=== PATIENT | female | born 1945 ===

== ENCOUNTER 2025-06-22 12:40 | Outpatient (AMB) | payer MEDICARE, SELFPAY ==
--- OUTSIDE RECORDS SUMMARY | 2025-06-22 13:05 | XMS_ITS | Clinical Summary ---
Author Organization [facility] Address [address] [place] [address] Care Team Providers Care Traffic Law Attorney Name Role Phone Oseas Frey MD Primary Care Provider [phone] Allergies Active Allergy Reactions Criticality Noted Date Comments Lisinopril 12/30/2014 Other reaction(s): Cough Nsaids 01/23/2023 CELEBREX OKAVOIDS DUE TO STOMACH ULCER Sulfamethoxazole-Trimethop rim 08/15/2015 Other reaction(s): Myalgia, unspecified site Medications Medication Sig Dispensed Refills Start Date End Date Status atorvastatin (LIPITOR) 40 MG tablet Take 1 tablet (40 mg total) by mouth daily. 0 05/21/2015 Active Multiple Vitamins-Minerals (MULTIVITAL PO) Take by mouth daily. 0 Active Calcium Carbonate-Vitamin D (CALCIUM + D PO) Take 1 tablet by mouth daily. 0 Active CRANBERRY PO Take 1 capsule by mouth daily. 0 05/26/2015 Active Cholecalciferol (VITAMIN D3 PO) Take 1 tablet by mouth daily. 0 05/26/2015 Active acetaminophen (TYLENOL EXTRA STRENGTH) 500 MG tablet Take 2 tablets (1,000 mg total) by mouth every 8 (eight) hours as needed. 0 05/26/2015 Active famotidine (PEPCID) 20 MG tablet Take 1 tablet (20 mg total) by mouth daily. 0 11/14/2022 Active losartan (COZAAR) tablet 25 mg Take 1 tablet (25 mg total) by mouth daily. 0 08/13/2021 Active Melatonin 5 MG CAPS Take 1 tablet by mouth every night at bedtime as needed. 0 Active aspirin EC 81 MG EC tablet Take 1 tablet (81 mg total) by mouth 2 (two) times a day after meals. 84 tablet 0 02/25/2023 Active oxyCODONE (ROXICODONE) 5 MG immediate release tablet Take 1 tablet (5 mg total) by mouth every 4 (four) hours as needed for pain. 30 tablet 0 02/25/2023 Active senna-docusate (PERICOLACE) 8.6-50 MG Take 1 tablet by mouth 2 (two) times a day. 60 tablet 0 02/25/2023 Active methocarbamol (ROBAXIN) 750 MG tablet Take 1 tablet (750 mg total) by mouth every 6 (six) hours as needed (spasm). 30 tablet 0 03/18/2023 Active Active Problems Problem Noted Date Diagnosed Date Hx of total knee arthroplasty, left 07/08/2023 BMI 40.0-44.9, adult 01/28/2023 Genu varum of left lower extremity 01/22/2023 Morbid obesity 08/20/2018 Arthritis, lumbar spine 02/20/2016 Osteoarthritis of knees, bilateral 11/21/2015 Liposarcoma of right thigh 08/15/2015 Delayed effect of radiation 08/15/2015 Right thigh pain 08/15/2015 Immunizations Name Administration Dates Next Due Covid-19 (Pfizer) Dilution Required 07/25/2021,0 01/11/2021,12/20/2020 Covid-19 (Pfizer) Ready To Use 02/18/2022 Family History Medical History Relation Name Comments Esophageal cancer Brother Lymphoma Brother Other Brother Diabetes Father Heart disease Father Hypertension Father Kidney disease Father Arthritis Mother Cancer Mother Heart disease Mother Heart failure Mother Hypertension Mother Relation Name Status Comments Brother Father (Age 96.5) Mother (Age 97) Social History Tobacco Use Types Packs/Day Years Used Date Smoking Tobacco: Never Smokeless Tobacco: Never Tobacco Cessation:Counseling Given: Not Answered Alcohol Use Standard Drinks/Week Comments No 0 (1 standard drink = 0.6 oz pur e alcohol) Sex and Gender Information Value Date Recorded Sex Assigned at Female 07/25/2020 11:54 AM EDT Gender Identity Female 01/23/2023 1:40 PM EDT Sexual Orientation Not on file Job Start Date Occupation Industry Not on file Not on file Not on file Last Filed Vital Signs Vital Sign Reading Time Taken Comments Blood Pressure 148/66 01/08/2024 1:20 PM EDT Pulse 69 01/08/2024 1:20 PM EDT Temperature 36.6 C (97.9 F) 01/08/2024 1:20 PM EDT Respiratory Rate 16 02/26/2023 7:58 AM EDT Oxygen Saturation 98% 01/08/2024 1:20 PM EDT Inhaled Oxygen Concentration - - Weight 104.3 kg (230 lb) 01/08/2024 1:20 PM EDT Height 157.5 cm (5' 2 ) 01/08/2024 1:20 PM EDT Body Mass Index 42.07 01/08/2024 1:20 PM EDT Plan of Treatment Health Maintenance Due Date Last Done Comments Hepatitis C Screening 1945 Depression Screening 1959 BMI Counseling 1965 Preventative Health Evaluation 1965 DTap / Tdap / Td (2 - Tdap) 06/02/2010 06/02/2000 Fall Risk Assessment 2012 Osteoporosis Screening (DEXA Scan) 2012 RSV Adult > 60+ Yrs or (1 - 1-dose 75+ series) 2022 Pneumococcal Vaccine (3 of 3 - PPSV23 or PCV20) 01/30/2023 12/05/2022, 09/27/2015, 08/04/2009 COVID-19 Vaccine ( season) 2024 02/18/2022, 07/25/2021, 01/11/2021, Additional history exists Influenza Vaccine (#1) 2025 2, 08/14/2022, 07/25/2021, Additional history exists Shingrix-Zoster Vaccine Completed 02/09/2021, 09/25 Hepatitis B Vaccines Aged Out No long er eligible based on patient's age to complete this topic RSV Ped < 20 months Aged Out No longe r eligible based on patient's age to complete this topic Medical Devices Implanted Type Area Cover Marker Device Identifier Shelf Expiration Date Model / Serial / Lot Nail Ian 130d Short 360mm 11mm Jade Preassembled Locking - [id number] - [id number] Implanted:Qty: 1 on 10/06/2015 by Alejandro Borjas MD [place] [facility] [place] Right: Hip [employer] 06/03/2023 [id number] / / [id number] Blade Gold Sheyenne 85mm 11mm Jade Titanium Intramedullary Fix - [id number] - [id number] Implanted:Qty: 1 on 10/06/2015 by Alejandro Borjas MD at [facility] [place] [facility] Right: Hip [employer] 456.302 / / Screw Nail-Ex Fullthrd 44mm 5mm Selftap Locking Stardrive - [id number] - [id number] Implanted:Qty: 1 on 10/06/2015 by Alejandro Borjas MD at [facility] [place] [facility] [place] Right: Hip [employer] 04.005.53 4 / / Knee Bsplt Triathlon Ti Sz 2 Stry-Howm [id number] - [id number] Implanted:Qty: 1 on 02/24/2023 by Alejandro Borjas MD at [facility] [place] [facility] Left: Knee [employer] [id number] 11/08/2027 5536-B-20 0 / / [id number] Knee Insrt Tib Trthln Ps 2 Stry-Howm [id number] - [id number] Implanted:Qty: 1 on 02/24/2023 by Alejandro Borjas MD at [facility] [place] [facility] Left: Knee [employer] [id number] 06/22/2027 5532-P-21 1 / / [id number] Description:Size #2, PS, THK NS: 11mm Knee Cmpnt Fem Ps N Kel Lt Sz2 Stry-Howm [id number] - [id number] Implanted:Qty: 1 on 02/24/2023 by Alejandro Borjas MD at [facility] [place] [facility] Left: Knee [employer] [id number] 06/04/2027 5516-F-20 1 / / [id number] Description:Size #2, LEFT, P S Knee Ptla Smtr Tritanium 31x9 Stry-Howm [id number] - [id number] Implanted:Qty: 1 on 02/24/2023 by Alejandro Borjas MD at [facility] [place] [facility] [place] Left: Knee [employer] [id number] 01/16/2028 5556-L-31 9 / / [id number] Advance Directives For more information, please contact: [phone] Latest Code Status on File Code Status Date Activated Date Inactivated Comments Full Code 02/24/2023 12:21 PM 02/26/2023 8:32 PM This c ode status was ascertained in the following way: discussion with patient . Code Status History Code Status Date Activated Date Inactivated Comments Full Code 02/24/2023 7:03 AM 02/24/2023 12:21 PM This c ode status was ascertained in the following way: discussion with patient . Full Code 10/06/2015 7:24 PM 10/09/2015 10:31 PM Th is code status was ascertained in the following way: discussion with patient. Care Teams Traffic Law Attorney Relationship Specialty Start Date End Date Oseas Frey MD [address] [place] [phone] PCP - General Internal Medicine 02/18/23 DR. MONK Pain Medicine 12/21/15
--- OUTSIDE RECORDS SUMMARY | 2025-06-22 13:05 | XMS_ITS | Patient Health Record ---
Author Organization [facility] Address [address] [place] [address] Support Name Relationship Address Phone Nuria Arauz Guarantor Unknown [phone] Reason For Referral No Information Plan Of Treatment No Information Insurance Providers Payer Name Payer Address Payer Phone Subscriber Number Group Number Insured Name Patient Relationship to Insured Coverage Start Date Coverage End Date Medicare of [place] - [facility] [address] [place] [address] [id number] Nuria Bah Self - patient is the insured
--- OUTSIDE RECORDS SUMMARY | 2025-06-22 13:06 | XMS_ITS ---
Author Name [facility] Organization Unknown History of Medication Use Medication Directions Dispensed Refills Start Date End Date Stat methocarbamoL (ROBAXIN) 750 mg tablet Take 1 tablet (750 mg total) by mouth every 6 hours as needed. 03/18/2023 active aspirin 81 mg EC tablet Take 1 tablet (8 1 mg total) by mouth 2 (two) times a day after meals. 02/25/2023 active aspirin EC 81 MG EC tablet Take 1 tablet (81 mg total) by mouth 2 (two) times a day after meals. 02/25/2023 active oxyCODONE (ROXICODONE) 5 mg immediate release tablet Take 1 tablet (5 mg total) by mouth every 30 minutes as needed. Max Daily Amount: 30 mg 02/25/2023 active senna-docusate (PERICOLACE) 8.6-50 MG Take 1 tablet by mouth 2 (two) times a day. 02/25/2023 active senna-docusate (PERICOLACE) 8.6-50 mg per tablet Take 1 tablet by mouth 2 (two) times a day. 02/25/2023 active famotidine (PEPCID) 20 mg tablet Take 1 tablet (20 mg total) by mouth 1 (one) time each day. 11/14/2022 active famotidine (PEPCID) 20 MG tablet Take 1 tablet (20 mg total) by mouth daily. 11/14/2022 active losartan (COZAAR) 25 mg tablet Take 1 tablet (25 mg total) by mouth 1 (one) time each day. 08/13/2021 active losartan (COZAAR) tablet 25 mg Take 1 tablet (25 mg total) by mouth daily. 08/13/2021 active acetaminophen (TYLENOL EXTRA STRENGTH) 500 MG tablet Take 2 tablets (1,000 mg total) by mouth every 8 (eight) hours as needed. 05/26/2015 active acetaminophen (TYLENOL) 500 mg tablet Take 2 tablets (1,000 mg total) by mouth every 8 hours as needed. 05/26/2015 active Cholecalciferol (VITAMIN D3 PO) Take 1 tablet by mouth daily. 05/26/2015 active Cholecalciferol (VITAMIN D3 PO) Take 1 tablet by mouth daily. 05/26/2015 active CRANBERRY ORAL Take 1 capsule by mouth daily. 05/26/2015 active CRANBERRY PO Take 1 capsule by mouth daily. 05/26/2015 active atorvastatin (LIPITOR) 40 mg tablet Take 1 tablet (40 mg total) by mouth 1 (one) time each day. 05/21/2015 active Melatonin 5 MG CAPS Take 1 tablet by mouth every night at bedtime as needed. active melatonin 5 mg capsule Take 1 tablet by mouth at bedtime as needed. active Multiple Vitamins-Minerals (MULTIVITAL PO) Take by mouth daily. active Allergies Allergen Reaction Severity Comment Documented Date Source Statu s NSAIDS CELEBREX OKAVOI DS DUE TO STOMACH ULCER 01/23/2023 [facility] active NSAIDS (NON-STEROIDAL ANTI-INFLAMMATOR Y DRUG) CELEBREX OKAVOIDS DUE TO STOMACH ULCER 01/23/2023 [facility] active SULFAMETHOXAZOLE -TRIMETHOPRIM Other reaction(s): Myalgia, unspecified site 08/15/2015 [facility] active LISINOPRIL Other reaction(s): Cough 12/30/2014 [facility] active Problems Problem Status Onset Date Problem Type Date of Resolution Source Hx of total knee arthroplasty, left active 2023-07-08 ProblemAct [facility] Hx of total knee arthroplasty, left active EncounterDiagnosisAct [facility] Osteoarthritis of knees, bilateral active 2015-11-21 ProblemAct [facility] Genu varum of left lower extremity active 2023-01-22 ProblemAct [facility] BMI 40.0-44.9, adult active 2023-01-28 ProblemAct [facility] Right thigh pain active 2015-08-15 ProblemAct [facility] Morbid obesity active 2018-08-20 ProblemAct [facility] Arthritis, lumbar spine active 2016-02-20 ProblemAct [facility] Liposarcoma of right thigh active 2015-08-15 ProblemAct [facility] Delayed effect of radiation active 2015-08-15 ProblemAct [facility] Immunizations Vaccine Date Source Lot Number Status Covid-19 (Pfizer) Ready To Use 02/18/2022 SHARIF [id number] completed Covid-19 (Pfizer) Dilution Required 07/25/2021 SHARIF [id number] completed Covid-19 (Pfizer) Dilution Required 01/11/2021 CTTJUAN R [id number] completed Covid-19 (Pfizer) Dilution Required 12/20/2020 AMBROSEGORDO [id number] completed Encounters Encounter Type Encounter Reason Primary Diagnosis Location Date Ambulatory History of left tota l knee replacement 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, including hip ([facility] V24, [facility] V28) [facility] 01/27/2025 Ambulatory Malignant neoplasm o f connective and soft tissue of right lower limb, including hip (CMS/HCC V24, CMS/HCC V28) 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, including hip (CMS/HCC V24, CMS/[facility] V28) [facility] 01/27/2025 Ambulatory Presence of left artificial knee joint Presence of left artificial knee joint [facility] 01/27/2025 Ambulatory Body mass index (BMI ) 40.0-44.9, adult Body mass index (BMI) 40.0-44.9, adult [facility] 01/08/2024 Ambulatory Bilateral primary osteoarthritis of knee Bilateral primary osteoarthritis of knee [facility] 07/08/2023 Care Team Organization Name Specialty Phone Email Start Date End Da te [facility] Oseas Dumont MD Primary Care 01/28/2025 [facility] Oseas Dumont MD Primary Care 01/27/2025 [facility] HERNANDEZ PEDROZA Primary Care 01/06/2024 [facility] 07/08/2023 07/08/2023 [facility] 04/14/2023 05/10/2025 [facility] OSEAS DUMONT Primary Care 04/08/2023 04/08/2023
== END 2025-06-22 12:50 | disposition home or self-care (01) ==
LOC: HO.HMGAL 12:40
PROVIDERS: PCP Internal Medicine; Visit Provider Registered Nurse Emergency
DX: J30.89 Other allergic rhinitis (principal)
CPT/HCPCS: 95117; 95165

== ENCOUNTER 2025-07-13 14:10 | Outpatient (AMB) | payer MEDICARE, SELFPAY ==
--- OUTSIDE RECORDS SUMMARY | 2025-07-13 17:54 | XMS_ITS | Clinical Summary ---
Author Organization [facility] Address [address] [place] [phone] Phone Care Team Providers Care Dressmaker Garment Fitter Name Role Phone Oseas Frey MD Primary Care Provider [phone] Allergies Active Allergy Reactions Criticality Noted Date Comments Lisinopril 12/30/2014 Other reaction(s): Cough Nsaids (Non-Steroidal Anti-Inflammatory Drug) 01/23/2023 CELEBREX OKAVOIDS DUE TO STOMACH ULCER Sulfamethoxazole-Trimethop rim 08/15/2015 Other reaction(s): Myalgia, unspecified site Medications acetaminophen (TYLENOL) 500 mg tablet Take 2 tablets (1,000 mg total) by mouth every 8 hours as needed. 05/26/2015 Active aspirin 81 mg EC tablet Take 1 tablet (81 mg total) by mouth 2 (two) times a day after meals. 02/25/2023 Active atorvastatin (LIPITOR) 40 mg tablet Take 1 tablet (40 mg total) by mouth 1 (one) time each day. 05/21/2015 Active CALCIUM CARBONATE ORAL Take 1 tablet by mouth daily. Active CHOLECALCIFEROL , VITAMIN D3, ORAL Take 1 tablet by mouth daily. 05/26/2015 Active CRANBERRY ORAL Take 1 capsule by mouth daily. 05/26/2015 Active famotidine (PEPCID) 20 mg tablet Take 1 tablet (20 mg total) by mouth 1 (one) time each day. 11/14/2022 Active losartan (COZAAR) 25 mg tablet Take 1 tablet (25 mg total) by mouth 1 (one) time each day. 08/13/2021 Active melatonin 5 mg capsule Take 1 tablet by mouth at bedtime as needed. Active methocarbamoL (ROBAXIN) 750 mg tablet Take 1 tablet (750 mg total) by mouth every 6 hours as needed. 03/18/2023 Active multivitamin (MULTIPLE VITAMINS ORAL) Take by mouth daily. Active oxyCODONE (ROXICODONE) 5 mg immediate release tablet Take 1 tablet (5 mg total) by mouth every 30 minutes as needed. Max Daily Amount: 30 mg 02/25/2023 Active senna-docusate (PERICOLACE) 8.6-50 mg per tablet Take 1 tablet by mouth 2 (two) times a day. 02/25/2023 Active Active Problems Problem Noted Date Diagnosed Date Genu varum of left lower extremity 01/22/2023 Morbid obesity ([facility] V24, [facility] V28) 2017 Arthritis, lumbar spine 02/20/2016 Osteoarthritis of knees, bilateral 11/21/2015 Delayed effect of radiation 08/15/2015 Liposarcoma of right thigh ([facility] V24, [facility] V28) 08/15/2015 Right thigh pain 08/15/2015 Surgical History Surgery Date Site/Laterality Comments HYSTERECTOMY 1992 PROCEDURE:HYSTERECTOMY;COMMEN T:total, tristian s/o OTHER SURGICAL HISTORY Right PROCEDURE:excision liposarcoma;COMMENT:x2 COSMETIC SURGERY PROCEDURE:COSMETIC SURGERY;COMMENT:revision scar rt thigh COLONOSCOPY PROCEDURE:COLONOSCOPY UPPER GASTROINTESTINAL ENDOSCOPY PROCEDURE:UPPER GASTROINTESTINAL ENDOSCOPY BONE BIOPSY 10/06/2015 Right PROCEDURE:BONE BIOPSY;COMMENT:Procedure: OPEN BIOPSY RIGHT FEMUR; Surgeon: Alejandro Borjas MD; Location: [facility]; Service: Orthopedics; Laterality: Right; ORIF FEMUR FRACTURE 10/06/2015 Right PROCEDURE:ORIF FEMUR FRACTURE;COMMENT:Procedure: PROPHYLACTIC IM NAIL RIGHT FEMUR; Surgeon: Alejandro Borjas MD; Location: [facility]; Service: Orthopedics; Laterality: Right; HAND SURGERY 2020 Right PROCEDURE:HAND SURGERY;COMMENT:trigger finger TOTAL KNEE ARTHROPLASTY 02/24/2023 Left PROCEDURE:TOTAL KNEE ARTHROPLASTY;COMMENT:Procedur e: REPLACEMENT TOTAL KNEE; Surgeon: Alejandro Borjas MD; Location: [facility]); Service: Orthopedics; Laterality: Left; Medical History Medical History Date Comments Hypertension DX:Hypertension Chronic kidney disease DX:Chroni c kidney disease;COMMENT:stones GERD (gastroesophageal reflux disease) DX:GERD (gastroesophageal reflux disease) Arthritis DX:Arthritis Cancer ([facility] V24, [facility] V28) DX:Cancer (HCC);COMMENT:liposarcoma Hyperlipidemia DX:Hyperlipidemi a Kidney stone DX:Kidney stone; COMMENT:past hx Radiation DX:Radiation Ulcer, stomach peptic DX:Ulcer, stomach peptic PND (post-nasal drip) DX:PND (po st-nasal drip) Hx of radiation therapy DX:Hx of radiation therapy Osteoarthritis DX:Osteoarthriti s Family History Medical History Relation Name Comments Esophageal cancer Brother Lymphoma Brother Other: Brother Diabetes Father Heart disease Father Hypertension Father Kidney disease Father Arthritis Mother Cancer Mother Heart disease Mother Heart failure Mother Hypertension Mother Relation Name Status Comments Brother Father (Age 96.5) Mother (Age 97) Social History Tobacco Use Types Packs/Day Years Used Date Smoking Tobacco: Never Smokeless Tobacco: Never Alcohol Use Standard Drinks/Week Comments No 0 (1 standard drink = 0.6 oz pur e alcohol) Comments Unknown Sex and Gender Information Value Date Recorded Sex Assigned at Not on file Legal Sex Female 11:30 AM EST Gender Identity Not on file Sexual Orientation Not on file Obstetrics History Last Filed Vital Signs Vital Sign Reading Time Taken Comments Blood Pressure 122/66 01/27/2025 1:04 PM EDT Pulse 73 01/27/2025 1:04 PM EDT Temperature - - Respiratory Rate - - Oxygen Saturation - - Inhaled Oxygen Concentration - - Weight 101 kg (222 lb) 01/27/2025 1:04 PM EDT Height 157.5 cm (5' 2 ) 01/27/2025 1:04 PM EDT Body Mass Index 40.6 01/27/2025 1:04 PM EDT Plan of Treatment Upcoming Encounters Date Type Department Care Team (Late st Contact Info) Description 01/19/2026 1:30 PM EDT Office Visit [facility]opedic Oncology - [place] [address] [place] [id number] Alejandro Borjas MD [address] [place], [place] [phone] (work) Health Maintenance Due Date Last Done Comments Diabetes: Annual Foot Exam 1955 Diabetes: Annual Retina Eye Exam 1955 Cholesterol Screening (Lipid Panel) 09/24/2022 Falls Risk Assessment 09/24/2022 Hepatitis C Screening 09/24/2022 Medicare Annual Wellness Visit 09/24/2022 Osteoporosis Screening (Bone Density Screening) 09/24/2022 Social Influencers of Health Screening 09/24/2022 Diabetes: Annual GFR (Glomerular Filtration Rate) 01/29/2024 01/28/2023, 01/28/2023 Depression Screening 10/27/2024 Diabetes: Annual Urine Albumin-Creatinine Ratio (uACR) 01/27/2025 Diabetes: Blood Sugar Control Test (HGBA1C) 01/27/2025 01/28/2023, 01/28/2023 Hypertension/CHF/CAD Annual BMP Blood Test 01/27/2025 01/28/2023, 01/28/2023 COVID-19 Vaccine (7 - Pfizer risk season) 2025 07/29/2024, 08/13/2023, 02/18/2022, Additional history exists Influenza Vaccine (#1) 2025 , 08/13/2023, 09/06/2022, Additional history exists Pneumococcal Vaccine: 50+ Years (3 of 3 - PCV20 or PCV21) 12/05/2027 12/05/2022, 09/27/2015, 08/04/2009 DTaP,Tdap,and Td Vaccines (3 - Td or Tdap) 12/11/2033 12/11/2023, 06/02/2000 Zoster Vaccines Completed 02/09/2021, 09/25/2020 RSV Immunization Adult Patients Completed 08/13/2023 HIB Vaccines Aged Out No longer eligi ble based on patient's age to complete this topic HPV Vaccines Aged Out No longer eligi ble based on patient's age to complete this topic Hepatitis A Vaccines Aged Out No long er eligible based on patient's age to complete this topic Hepatitis B Vaccines Aged Out No long er eligible based on patient's age to complete this topic IPV Vaccines Aged Out No longer eligi ble based on patient's age to complete this topic MMR Vaccines Aged Out No longer eligi ble based on patient's age to complete this topic Meningococcal ACWY Vaccine Aged Out N o longer eligible based on patient's age to complete this topic Meningococcal B Vaccine Aged Out No l onger eligible based on patient's age to complete this topic RSV Immunization Patients Under 20 months Aged Out No longer eligible based on patient's age to complete this topic Varicella Vaccines Aged Out No longer eligible based on patient's age to complete this topic Medical Devices Implanted Type Area Vp Rheumatology Device Identifier Shelf Expiration Date Model / Serial / Lot Knee Bsplt Triathlon Ti Sz 2 Stry-Howm [id number] Implanted:Qty: 1 on 02/24/2023 by Alejandro Borjas MD Left: Knee [employer] [id number] 11/08/2027 5536-B-200 / / [id number] Knee Insrt Tib Trthln Ps 2 Stry-Howm [id number] Implanted:Qty: 1 on 02/24/2023 by Alejandro Borjas MD Left: Knee [employer] [id number] 06/22/2027 5532-P-211 / / [id number] Description:Size #2, PS, THK NS: 11mm Knee Cmpnt Fem Ps N Kel Lt Sz2 Stry-Howm [id number] Implanted:Qty: 1 on 02/24/2023 by Alejandro Borjas MD Left: Knee [employer] [id number] 06/04/2027 5516-F-201 / / [id number] Description:Size #2, LEFT, P S Knee Ptla Smtr Tritanium 31x9 Stry-Howm [id number] Implanted:Qty: 1 on 02/24/2023 by Alejandro Borjas MD Left: Knee [employer] [id number] 01/16/2028 5556-L-319 / / [id number] Procedures Procedure Name Priority Date/Time Associated Diagnosis Comments HM ANNUAL BMP BLOOD TEST Routine 01/28/2023 HEMOGLOBIN A1C Routine 01/28/2023 from Last 3 Months or Most Recently Relevant to Health Maintenance Results * Annual BMP Blood Test (01/28/2023) Annual BMP Blood Test abstracted Historical Provider HEALTH MAINTENANCE Final Result * (ABNORMAL) Hemoglobin A1c (01/28/2023) Hemoglobin A1C 6.5(A) <=5.7 % Blood Venous blood specimen / Unknown Historical Provider LAB BLOOD ORDERABLES Margie l Result from Last 3 Months or Most Recently Relevant to Health Maintenance Insurance [employer] [employer] Advance Directives Documents on File Type Date Recorded Patient Retail Custodial Associate Expl anation Health Care Decision (hx) 02/24/2023 SARAH HERNANDEZ Care Teams Dressmaker Garment Fitter Relationship Specialty Start Date End Date Oseas Frey MD [address] [place] [phone] PCP - General 02/18/23
--- OUTSIDE RECORDS SUMMARY | 2025-07-13 17:54 | XMS_ITS | Clinical Summary ---
Author Organization [facility] Address [address] [place] [address] Care Team Providers Care Face Man Name Role Phone Oseas Frey MD Primary Care Provider [phone]- [phone] Allergies Active Allergy Reactions Criticality Noted Date [...] 12/05/2022, 09/27/2015, 08/04/2009 COVID-19 Vaccine ( season) 2025 02/18/2022, 07/25/2021, 01/11/2021, Additional history exists Influenza Vaccine (#1) 2025 2, 08/14/2022, 07/25/2021, Additional history exists Shingrix-Zoster Vaccine Completed 02/09/2021, 09/25 Hepatitis B Vaccines Aged Out No long er eligible based on patient's age to complete this topic RSV Ped < 20 months Aged Out No longe r eligible based on patient's age to complete this topic Medical Devices Implanted Type Area Batch Attendant Device Identifier Shelf Expiration Date Model / Serial / Lot Nail Ian 130d Short 360mm 11mm Jade Preassembled Locking - [id number] - [id number] Implanted:Qty: 1 on 10/06/2015 by Alejandro Borjas MD at [facility] Right: Hip [employer] 06/03/2023 456.416S / / [id number] Blade Gold [place] 85mm 11mm Jade Titanium Intramedullary Fix - [id number] - [id number] Implanted:Qty: 1 on 10/06/2015 by Alejandro Borjas MD at [facility] Right: Hip [employer] 456.302 / / Screw Nail-Ex Fullthrd 44mm 5mm Selftap Locking Stardrive - [id number] - [id number] Implanted:Qty: 1 on 10/06/2015 by Alejandro Borjas MD at [facility] Right: Hip [employer] 04.005.53 4 / / Knee Bsplt Triathlon Ti Sz 2 Stry-Howm 2109-E-935-679285 - [id number] Implanted:Qty: 1 on 02/24/2023 by Alejandro Borjas MD at [facility] Left: Knee [facility] [id number] 11/08/2027 5536-B-20 0 / / [id number] Knee Insrt Tib Trthln Ps 2 Stry-Howm 5637-F-203-401473 - [id number] Implanted:Qty: 1 on 02/24/2023 by Alejandro Borjas MD at [facility] Left: Knee [employer] [id number] 06/22/2027 5532-P-21 1 / / [id number] Description:Size #2, PS, THK NS: 11mm Knee Cmpnt Fem Ps N Kel Lt Sz2 Stry-Howm 8018-W-718-121989 - [id number] Implanted:Qty: 1 on 02/24/2023 by Alejandro Borjas MD at [facility] Left: Knee [employer] [id number] 06/04/2027 5516-F-20 1 / / [id number] Description:Size #2, LEFT, P S Knee Ptla Smtr Tritanium 31x9 Stry-Howm 2154-I-212-161960 - [id number] Implanted:Qty: 1 on 02/24/2023 by Alejandro Borjas MD at [facility] Left: Knee [facility] [facility] [id number] 01/16/2028 5556-L-31 9 / / [id number] Advance Directives For more information, please contact: [phone] Latest Code Status on File Code Status [...] following way: discussion with patient. Care Teams Face Man Relationship Specialty Start Date End Date Oseas Frey MD [address] [place] [address] PCP - General Internal Medicine 02/18/23 DR. MONK Pain Medicine 12/21/15
--- OUTSIDE RECORDS SUMMARY | 2025-07-13 17:54 | XMS_ITS | Patient Health Record ---
Author Organization [facility] Address [address] [place] [address] Support Name Relationship Address Phone Nuria Arauz Guarantor Unknown [phone] Reason For Referral No Information Plan Of Treatment No Information Insurance Providers Payer Name Payer Address Payer Phone Subscriber Number Group Number Insured Name Patient Relationship to Insured Coverage Start Date Coverage End Date Medicare of [place] - [facility] [address] [place] [address] [id number] Nuria Bah Self - patient is the insured
== END 2025-07-13 14:13 | disposition home or self-care (01) ==
LOC: HO.HMGAL 14:10
PROVIDERS: PCP Internal Medicine; Visit Provider Registered Nurse Emergency
DX: J30.89 Other allergic rhinitis (principal)
CPT/HCPCS: 95117; 95165

== ENCOUNTER 2025-08-10 15:30 | Outpatient (AMB) | payer MEDICARE, SELFPAY ==
--- OUTSIDE RECORDS SUMMARY | 2025-08-10 18:59 | XMS_ITS | Clinical Summary ---
Author Organization [facility] Building Address [address] [place] [address] Phone Care Team Providers Care Coat Joiner Lockstitch Name Role Phone Oseas Frey MD Primary Care Provider [phone]- [phone] Allergies Active Allergy Reactions Criticality Noted Date [...] of left lower extremity 01/22/2023 Morbid obesity ([facility] V24, [facility] V28) 2017 Arthritis, lumbar spine 02/20/2016 Osteoarthritis of knees, bilateral 11/21/2015 Delayed effect of radiation 08/15/2015 Liposarcoma of right thigh ([facility] V24, [facility] V28) 08/15/2015 Right thigh pain 08/15/2015 Surgical History Surgery Date Site/Laterality Comments HYSTERECTOMY 1992 PROCEDURE:HYSTERECTOMY;COMMEN T:total, tristian s/o OTHER SURGICAL HISTORY Right PROCEDURE:excision liposarcoma;COMMENT:x2 COSMETIC SURGERY PROCEDURE:COSMETIC SURGERY;COMMENT:revision scar rt thigh COLONOSCOPY PROCEDURE:COLONOSCOPY UPPER GASTROINTESTINAL ENDOSCOPY PROCEDURE:UPPER GASTROINTESTINAL ENDOSCOPY BONE BIOPSY 10/06/2015 Right PROCEDURE:BONE BIOPSY;COMMENT:Procedure: OPEN BIOPSY RIGHT FEMUR; Surgeon: Aeljandro Borjas MD; Location: [facility] MAIN OPERATING ROOM; Service: Orthopedics; Laterality: Right; ORIF FEMUR FRACTURE 10/06/2015 Right PROCEDURE:ORIF FEMUR FRACTURE;COMMENT:Procedure: PROPHYLACTIC IM NAIL RIGHT FEMUR; Surgeon: Alejandro Borjas MD; Location: [facility] MAIN OPERATING ROOM; Service: Orthopedics; Laterality: Right; HAND SURGERY 2020 Right PROCEDURE:HAND SURGERY;COMMENT:trigger finger TOTAL KNEE ARTHROPLASTY 02/24/2023 Left PROCEDURE:TOTAL KNEE ARTHROPLASTY;COMMENT:Procedur e: REPLACEMENT TOTAL KNEE; Surgeon: Alejandro Borjas MD; Location: [facility] Service: Orthopedics; Laterality: Left; Medical History Medical History Date Comments Hypertension DX:Hypertension Chronic kidney disease DX:Chroni c kidney disease;COMMENT:stones GERD (gastroesophageal reflux disease) DX:GERD (gastroesophageal reflux disease) Arthritis DX:Arthritis Cancer ([facility] V24, [facility] V28) DX:Cancer (HCC);COMMENT:liposarcoma Hyperlipidemia DX:Hyperlipidemi a Kidney [...] PM EDT Office Visit Orthopedic Oncology - [place] [address] [place] [phone] Alejandro Borjas MD [address] [place], [place] [id number] (work) Health Maintenance Due Date Last Done [...] this topic Medical Devices Implanted Type Area Blintze Roller Device Identifier Shelf Expiration Date Model / Serial / Lot Knee Bsplt Triathlon Ti Sz 2 Stry-Howm 8832-P-[id number] [id number] Implanted:Qty: 1 on 02/24/2023 by Alejandro Borjas MD Left: Knee [employer] [id number] 11/08/2027 5536-B-200 / / [id number] Knee Insrt Tib Trthln Ps 2 Stry-Howm 5555-Z-363-550 545 Implanted:Qty: 1 on 02/24/2023 by Alejandro Borjas MD Left: Knee [employer] [id number] 06/22/2027 5532-P-211 / / [id number] Description:Size #2, PS, THK NS: 11mm Knee Cmpnt Fem Ps N Kel Lt Sz2 Stry-Howm 3830-Z-548-549 373 Implanted:Qty: 1 on 02/24/2023 by Alejandro Borjas MD Left: Knee [employer] [id number] 06/04/2027 5516-F-201 / / [id number] Description:Size #2, LEFT, P S Knee Ptla Smtr Tritanium 31x9 Stry-Howm 3798-K-645-606 060 Implanted:Qty: 1 on 02/24/2023 by Alejandro Borjas MD Left: Knee [employer] [id number] 01/16/2028 5556-L-319 / / [id number] Procedures Procedure [...] Documents on File Type Date Recorded Patient Crude Unit Operator Expl anation Health Care Decision (hx) 02/24/2023 SARAH HERNANDEZ Care Teams Coat Joiner Lockstitch Relationship Specialty Start Date End Date Oseas Frey MD [address] [place] [address] PCP - General 02/18/23
--- OUTSIDE RECORDS SUMMARY | 2025-08-10 18:59 | XMS_ITS | Patient Health Record ---
Author Organization [facility] Address [address] [place] [address] Support Name Relationship Address Phone Nuria Arauz Guarantor Unknown Reason For Referral No Information Plan Of Treatment No Information Insurance Providers Payer Name Payer Address Payer Phone Subscriber Number Group Number Insured Name Patient Relationship to Insured Coverage Start Date Coverage End Date Medicare of [place] [facility] [address] [place] [address] [id number] Nuria Bah Self - patient is the insured
--- OUTSIDE RECORDS SUMMARY | 2025-08-10 18:59 | XMS_ITS | Clinical Summary ---
Author Organization [facility] Address [address] [place] [address] Care Team Providers Care Pipe Welder Name Role Phone Oseas Frey MD Primary Care Provider [phone]- [phone] Allergies Active Allergy Reactions Criticality Noted Date [...] this topic Medical Devices Implanted Type Area Business Process Engineer Device Identifier Shelf Expiration Date Model / Serial / Lot Nail Ian 130d Short 360mm 11mm Jade Preassembled Locking - 396121 - [id number] Implanted:Qty: 1 on 10/06/2015 by Alejandro Borjas MD at [facility] Right: Hip [employer] 06/03/2023 456.416S / / [id number] Blade Gold [place] 85mm 11mm Jade Titanium Intramedullary Fix - 389567 - [id number] Implanted:Qty: 1 on 10/06/2015 by Alejandro Borjas MD at [facility] Right: Hip [employer] 456.302 / / Screw Nail-Ex Fullthrd 44mm 5mm Selftap Locking Stardrive - 805456 - [id number] Implanted:Qty: 1 on 10/06/2015 by Alejandro Borjas MD at [facility] Right: Hip [employer] 04.005.53 4 / / Knee Bsplt Triathlon Ti Sz 2 Stry-Howm 6036-R-401-262763 - [id number] Implanted:Qty: 1 on 02/24/2023 by Alejandro Borjas MD at [facility] Left: Knee [facility] [id number] 11/08/2027 5536-B-20 0 / / [id number] Knee Insrt Tib Trthln Ps 2 Stry-Howm 6697-R-547-607905 - [id number] Implanted:Qty: 1 on 02/24/2023 by Alejandro Borjas MD at [facility] Left: Knee [facility] [facility] [id number] 06/22/2027 5532-P-21 1 / / [id number] Description:Size #2, PS, THK NS: 11mm Knee Cmpnt Fem Ps N Kel Lt Sz2 Stry-Howm 9454-K-564-469686 - [id number] Implanted:Qty: 1 on 02/24/2023 by Alejandro Borjas MD at [facility] Left: Knee [facility] [id number] 06/04/2027 5516-F-20 1 / / [id number] Description:Size #2, LEFT, P S Knee Ptla Smtr Tritanium 31x9 Stry-Howm 9332-N-934-132704 - [id number] Implanted:Qty: 1 on 02/24/2023 by Alejandro Borjas MD at [facility] Left: Knee [facility] [facility] [id number] 01/16/2028 5556-L-31 9 / / [id number] Advance Directives For more information, please contact: [phone] Latest Code Status on File Code Status [...] following way: discussion with patient. Care Teams Pipe Welder Relationship Specialty Start Date End Date Oseas Frey MD [address] [place] [address] PCP - General Internal Medicine 02/18/23 DR. MONK Pain Medicine 12/21/15
== END 2025-08-10 15:31 | disposition home or self-care (01) ==
LOC: HO.HMGAL 15:30
PROVIDERS: PCP Internal Medicine; Visit Provider Registered Nurse Emergency
DX: J30.89 Other allergic rhinitis (principal)
CPT/HCPCS: 95117; 95165

== ENCOUNTER 2025-08-31 15:21 | Outpatient (AMB) | payer MEDICARE, SELFPAY ==
--- OUTSIDE RECORDS SUMMARY | 2025-08-31 18:18 | XMS_ITS | Patient Health Record ---
Author Organization [facility] Address [address] [place] [address] Support Name Relationship Address Phone Nuria Arauz Guarantor Unknown [phone] Reason For Referral No Information Plan Of Treatment No Information Insurance Providers Payer Name Payer Address Payer Phone Subscriber Number Group Number Insured Name Patient Relationship to Insured Coverage Start Date Coverage End Date [facility] [place] [facility] [address] [place] [address] [id number] Nuria Bah Self - patient is the insured
--- OUTSIDE RECORDS SUMMARY | 2025-08-31 18:18 | XMS_ITS | Clinical Summary ---
Author Organization [facility] Address [address] [place] [address] Care Team Providers Care Bilingual Customer Service Specialist Name Role Phone Oseas Frey MD Primary Care Provider [phone]- [phone] Allergies Active Allergy Reactions Criticality Noted Date [...] this topic Medical Devices Implanted Type Area Continuous Yarn Dyeing Machine Operator Device Identifier Shelf Expiration Date Model / Serial / Lot Nail Ian 130d Short 360mm 11mm Jade Preassembled Locking - [id number] - [id number] Implanted:Qty: 1 on 10/06/2015 by Alejandro Borjas MD at [facility] Right: Hip [employer] 06/03/2023 456.416S / / [id number] Blade Gold [place] 85mm 11mm Jade Titanium Intramedullary Fix - 549157 - [id number] Implanted:Qty: 1 on 10/06/2015 by Alejandro Borjas MD at [facility] Right: Hip [employer] 456.302 / / Screw Nail-Ex Fullthrd 44mm 5mm Selftap Locking Stardrive - 492150 - [id number] Implanted:Qty: 1 on 10/06/2015 by Alejandro Borjas MD at [facility] Right: Hip [employer] 04.005.53 4 / / Knee Bsplt Triathlon Ti Sz 2 Stry-Howm 4033-Q-052-107719 - [id number] Implanted:Qty: 1 on 02/24/2023 by Alejandro Borjas MD at [facility] Left: Knee [facility] [id number] 11/08/2027 5536-B-20 0 / / [id number] Knee Insrt Tib Trthln Ps 2 Stry-Howm 5528-U-016-396666 - [id number] Implanted:Qty: 1 on 02/24/2023 by Alejandro Borjas MD at [facility] Left: Knee [facility] [id number] 06/22/2027 5532-P-21 1 / / [id number] Description:Size #2, PS, THK NS: 11mm Knee Cmpnt Fem Ps N Kel Lt Sz2 Stry-Howm 9553-T-818-552789 - [id number] Implanted:Qty: 1 on 02/24/2023 by Alejandro Borjas MD at [facility] Left: Knee [facility] [id number] 06/04/2027 5516-F-20 1 / / [id number] Description:Size #2, LEFT, P S Knee Ptla Smtr Tritanium 31x9 Stry-Howm 1599-A-163-597603 - [id number] Implanted:Qty: 1 on 02/24/2023 by Alejandro Borjas MD at [facility] Left: Knee [facility] [id number] 01/16/2028 5556-L-31 9 / / [id number] Advance Directives For more information, please contact: [phone] Latest Code Status on File Code Status [...] following way: discussion with patient. Care Teams Bilingual Customer Service Specialist Relationship Specialty Start Date End Date Oseas Frey MD [address] [place] [address] PCP - General Internal Medicine 02/18/23 DR. MONK Pain Medicine 12/21/15
== END 2025-08-31 15:22 | disposition home or self-care (01) ==
LOC: HO.HMGAL 15:21
PROVIDERS: PCP Internal Medicine; Visit Provider Registered Nurse Emergency
DX: J30.89 Other allergic rhinitis (principal)
CPT/HCPCS: 95117; 95165

== ENCOUNTER 2025-09-26 14:34 | Outpatient (AMB) | payer MEDICARE, SELFPAY ==
--- OUTSIDE RECORDS SUMMARY | 2025-09-26 17:52 | XMS_ITS | Clinical Summary ---
Author Organization [facility] [facility] Building Address [address] [place] [address] Phone Care Team Providers Care Entry Level Sales Consultant Name Role Phone Oseas Frey MD Primary Care Provider [phone] Allergies Active Allergy Reactions Criticality Noted Date [...] of left lower extremity 01/22/2023 Morbid obesity ([facility] V24, [facility] V28) 2017 Arthritis, lumbar spine 02/20/2016 Osteoarthritis of knees, bilateral 11/21/2015 Delayed effect of radiation 08/15/2015 Liposarcoma of right thigh ([facility] V24, [facility] V28) 08/15/2015 Right thigh pain 08/15/2015 Surgical History Surgery Date Site/Laterality Comments HYSTERECTOMY 1992 PROCEDURE:HYSTERECTOMY;COMMEN T:total, tristian s/o OTHER SURGICAL HISTORY Right PROCEDURE:excision liposarcoma;COMMENT:x2 COSMETIC SURGERY PROCEDURE:COSMETIC SURGERY;COMMENT:revision scar rt thigh COLONOSCOPY PROCEDURE:COLONOSCOPY UPPER GASTROINTESTINAL ENDOSCOPY PROCEDURE:UPPER GASTROINTESTINAL ENDOSCOPY BONE BIOPSY 10/06/2015 Right PROCEDURE:BONE BIOPSY;COMMENT:Procedure: OPEN BIOPSY RIGHT FEMUR; Surgeon: Alejandro Borjas MD; Location: [facility] MA[facility]PERATING ROOM; Service: Orthopedics; Laterality: Right; ORIF FEMUR FRACTURE 10/06/2015 Right PROCEDURE:ORIF FEMUR FRACTURE;COMMENT:Procedure: PROPHYLACTIC IM NAIL RIGHT FEMUR; Surgeon: Alejandro Borjas MD; Location: [facility] MA[facility]PER[facility] RO[facility]; Service: Orthopedics; Laterality: Right; HAND SURGERY 2020 Right PROCEDURE:HAND SURGERY;COMMENT:trigger finger TOTAL KNEE ARTHROPLASTY 02/24/2023 Left PROCEDURE:TOTAL KNEE ARTHROPLASTY;COMMENT:Procedur e: REPLACEMENT TOTAL KNEE; Surgeon: Alejandro Borjas MD; Location: [facility] Service: Orthopedics; Laterality: Left; Medical History Medical History Date Comments Hypertension DX:Hypertension Chronic kidney disease DX:Chroni c kidney disease;COMMENT:stones GERD (gastroesophageal reflux disease) DX:GERD (gastroesophageal reflux disease) Arthritis DX:Arthritis Cancer ([facility] V24, [facility] V28) DX:Cancer (HCC);COMMENT:liposarcoma Hyperlipidemia DX:Hyperlipidemi a Kidney [...] PM EDT Office Visit Orthopedic Oncology - [place] [address] [place] [phone] Alejandro Borjas MD [address] [place], [place] [address] (work) Health Maintenance Due Date Last Done [...] Blood Test 01/27/2025 01/28/2023, 01/28/2023 COVID-19 Vaccine ( season) 2025 07/29/2024, 08/13/2023, 02/18/2022, Additional history [...] this topic Medical Devices Implanted Type Area Production Manager Device Identifier Shelf Expiration Date Model / Serial / Lot Knee Bsplt Triathlon Ti Sz 2 Stry-Howm 2947-U-[id number] Implanted:Qty: 1 on 02/24/2023 by Alejandro Borjas MD Left: Knee [employer] [id number] 11/08/2027 5536-B-200 / / [id number] Knee Insrt Tib Trthln Ps 2 Stry-Howm 2144-Z-536-550 545 Implanted:Qty: 1 on 02/24/2023 by Alejandro Borjas MD Left: Knee [employer] [id number] 06/22/2027 5532-P-211 / / [id number] Description:Size #2, PS, THK NS: 11mm Knee Cmpnt Fem Ps N Kel Lt Sz2 Stry-Howm 0746-B-088-549 373 Implanted:Qty: 1 on 02/24/2023 by Alejandro Borjas MD Left: Knee [employer] [id number] 06/04/2027 5516-F-201 / / [id number] Description:Size #2, LEFT, P S Knee Ptla Smtr Tritanium 31x9 Stry-Howm 0057-A-834-606 060 Implanted:Qty: 1 on 02/24/2023 by Alejandro Borjas MD Left: Knee [employer] [id number] 01/16/2028 5556-L-319 / / [id number] Procedures Procedure [...] Documents on File Type Date Recorded Patient Latin Teacher Expl anation Health Care Decision (hx) 02/24/2023 SARAH HERNANDEZ Care Teams Entry Level Sales Consultant Relationship Specialty Start Date End Date Oseas Frey MD [address] [place] [address] PCP - General 02/18/23
--- OUTSIDE RECORDS SUMMARY | 2025-09-26 17:52 | XMS_ITS | Clinical Summary ---
Author Organization [facility] Address [address] [place] [address] Care Team Providers Care Slasher Operator Name Role Phone Oseas Frey MD Primary Care Provider [phone] Allergies Active Allergy Reactions Criticality Noted Date [...] this topic Medical Devices Implanted Type Area Air Quality Consultant Device Identifier Shelf Expiration Date Model / Serial / Lot Nail Ian 130d Short 360mm 11mm Jade Preassembled Locking - [id number] - [id number] Implanted:Qty: 1 on 10/06/2015 by Alejandro Borjas MD at [facility] Right: Hip [employer] 06/03/2023 456.416S / / [id number] Blade Gold [place] 85mm 11mm Jade Titanium Intramedullary Fix - 859561 - [id number] Implanted:Qty: 1 on 10/06/2015 by Aljeandro Borjas MD at [facility] Right: Hip [employer] 456.302 / / Screw Nail-Ex Fullthrd 44mm 5mm Selftap Locking [employer]rive - 183286 - [id number] Implanted:Qty: 1 on 10/06/2015 by Alejandro Borjas MD at [facility] Right: Hip [employer] 04.005.53 4 / / Knee Bsplt Triathlon Ti Sz 2 Stry-Howm 7724-F-676-277337 - [id number] Implanted:Qty: 1 on 02/24/2023 by Alejandro Borjas MD at [facility] Left: Knee [employer] [facility] [id number] 11/08/2027 5536-B-20 0 / / [id number] Knee Insrt Tib Trthln Ps 2 Stry-Howm 9990-G-505-642206 - [id number] Implanted:Qty: 1 on 02/24/2023 by Alejandro Borjas MD at [facility] Left: Knee [facility] [facility] [id number] 06/22/2027 5532-P-21 1 / / [id number] Description:Size #2, PS, THK NS: 11mm Knee Cmpnt Fem Ps N Kel Lt Sz2 Stry-Howm 0543-Q-805-763019 - [id number] Implanted:Qty: 1 on 02/24/2023 by Alejandro Borjas MD at [facility] Left: Knee [employer] [facility] [id number] 06/04/2027 5516-F-20 1 / / [id number] Description:Size #2, LEFT, P S Knee Ptla Smtr Tritanium 31x9 Stry-Howm 4151-C-716-440166 - [id number] Implanted:Qty: 1 on 02/24/2023 by Alejandro Borjas MD at [facility] Left: Knee [facility] [id number] 01/16/2028 5556-L-31 9 / / [id number] Advance Directives For more information, please contact: [phone] Latest Code Status on File Code Status [...] following way: discussion with patient. Care Teams Slasher Operator Relationship Specialty Start Date End Date Oseas Frey MD [address] [place] [address] PCP - General Internal Medicine 02/18/23 DR. MONK Pain Medicine 12/21/15
== END 2025-09-26 14:36 | disposition home or self-care (01) ==
LOC: HO.HMGAL 14:34
PROVIDERS: PCP Internal Medicine; Visit Provider Registered Nurse Emergency
DX: J30.89 Other allergic rhinitis (principal)
CPT/HCPCS: 95117; 95165

== ENCOUNTER 2025-10-26 13:32 | Outpatient (AMB) | payer MEDICARE, SELFPAY ==
--- OUTSIDE RECORDS SUMMARY | 2025-10-26 14:58 | XMS_ITS | Clinical Summary ---
Author Organization [facility] Address [address] [place] [phone] Phone Care Team Providers Care Tube Test Technician Name Role Phone Oseas Frey MD Primary Care Provider [phone]- [phone] Allergies Active Allergy Reactions Criticality Noted Date [...] of radiation 08/15/2015 Liposarcoma of right thigh 08/15/2015 Right thigh pain 08/15/2015 Surgical History Surgery Date Site/Laterality Comments HYSTERECTOMY 1992 PROCEDURE:HYSTERECTOMY;COMMEN T:total, tristian s/o OTHER SURGICAL HISTORY Right PROCEDURE:excision liposarcoma;COMMENT:x2 COSMETIC SURGERY PROCEDURE:COSMETIC SURGERY;COMMENT:revision scar rt thigh COLONOSCOPY PROCEDURE:COLONOSCOPY UPPER GASTROINTESTINAL ENDOSCOPY PROCEDURE:UPPER GASTROINTESTINAL ENDOSCOPY BONE BIOPSY 10/06/2015 Right PROCEDURE:BONE BIOPSY;COMMENT:Procedure: OPEN BIOPSY RIGHT FEMUR; Surgeon: Alejandro Borjas MD; Location: [facility]; Service: Orthopedics; Laterality: Right; ORIF FEMUR FRACTURE 10/06/2015 Right PROCEDURE:ORIF FEMUR FRACTURE;COMMENT:Procedure: PROPHYLACTIC IM NAIL RIGHT FEMUR; Surgeon: Alejandro Borjas MD; Location: [facility]; Service: Orthopedics; Laterality: Right; HAND SURGERY 2020 Right PROCEDURE:HAND SURGERY;COMMENT:trigger finger TOTAL KNEE ARTHROPLASTY 02/24/2023 Left PROCEDURE:TOTAL KNEE ARTHROPLASTY;COMMENT:Procedur e: REPLACEMENT TOTAL KNEE; Surgeon: Alejandro Borjas MD; Location: [facility] Service: Orthopedics; Laterality: Left; Medical History Medical History Date Comments Hypertension DX:Hypertension Chronic kidney disease DX:Chroni c kidney disease;COMMENT:stones GERD (gastroesophageal reflux disease) DX:GERD (gastroesophageal reflux disease) Arthritis DX:Arthritis Cancer ([facility]/HCC V24, [facility]/HCC V28) DX:Cancer (HCC);COMMENT:liposarcoma Hyperlipidemia DX:Hyperlipidemi a Kidney [...] on file Sexual Orientation Not on file Last Filed Vital Signs [...] PM EDT Office Visit Orthopedic On[facility] - [facility] [address] [place] [address] Alejandro Borjas MD [address] [place], [place] [id number] Health Maintenance Due Date Last Done Comments [...] this topic Medical Devices Implanted Type Area Casey Saw Operator Device Identifier Shelf Expiration Date Model / Serial / Lot Knee Bsplt Triathlon Ti Sz 2 Stry-Howm [id number] Implanted:Qty: 1 on 02/24/2023 by Alejandro Borjas MD Left: Knee [employer] [id number] 11/08/2027 5536-B-200 / / [id number] Knee Insrt Tib Trthln Ps 2 Stry-Howm [id number] Implanted:Qty: 1 on 02/24/2023 by Alejandro Borjas MD Left: Knee [employer] [id number] 06/22/2027 5532-P-211 / / [id number] Description:Size #2, PS, THK NS: 11mm Knee Cmpnt Fem Ps N Kel Lt Sz2 Stry-Howm [id number] Implanted:Qty: 1 on 02/24/2023 by Alejandro Borjas MD Left: Knee [employer] [id number] 06/04/2027 5516-F-201 / / [id number] Description:Size #2, LEFT, P S Knee Ptla Smtr Tritanium 31x9 Stry-Howm [id number] Implanted:Qty: 1 on 02/24/2023 by Alejandro Borjas MD Left: Knee [employer] [id number] 01/16/2028 5556-L-319 / / [id number] Procedures Procedure Name Priority Date/Time Associated Diagnosis Comments ANNUAL BMP BLOOD TEST Routine 01/28/2023 HEMOGLOBIN A1C Routine 01/28/2023 from Last 3 Months or Most Recently Relevant to Health Maintenance Results * Annual BMP Blood Test (01/28/2023) Annual BMP Blood Test abstracted Historical Provider HEALTH MAINTENANCE Final Result * (ABNORMAL) Hemoglobin A1c (01/28/2023) Hemoglobin A1C 6.5(A) <=5.7 % Blood Venous blood specimen / Unknown us Historical Provider LAB BLOOD ORDERABLES Margie l Result from Last 3 Months or Most Recently Relevant to Health Maintenance Insurance [employer] Advance Directives Documents on File Type Date Recorded Patient Payment Collector Expl anation Health Care Decision (hx) 02/24/2023 [facility] Care Teams Tube Test Technician Relationship Specialty Start Date End Date Oseas Frey MD [address] [place] [phone] PCP - General 02/18/23
--- OUTSIDE RECORDS SUMMARY | 2025-10-26 14:58 | XMS_ITS | Patient Health Record ---
Author Organization [facility] Address [address] [place] [address] Support Name Relationship Address Phone Nuria Arauz Guarantor Unknown [phone] Reason For Referral No Information Plan Of Treatment No Information Insurance Providers Payer Name Payer Address Payer Phone Subscriber Number Group Number Insured Name Patient Relationship to Insured Coverage Start Date Coverage End Date Medicare of [place] - [facility] [address] [place] [address] [id number] Nuria Bah Self - patient is the insured
--- OUTSIDE RECORDS SUMMARY | 2025-10-26 14:58 | XMS_ITS | Clinical Summary ---
Author Organization [facility] Prior to 03/26/25 Address [address] [place] [address] Care Team Providers Care Principal Clerk Typist Name Role Phone Oseas Frey MD Primary Care Provider [phone] Allergies Active Allergy Reactions Criticality Noted Date [...] this topic Medical Devices Implanted Type Area Die Cast Operator Device Identifier Shelf Expiration Date Model / Serial / Lot Jarret Sosa 130d Short 360mm 11mm Jade Preassembled Locking - [id number] - [id number] Implanted:Qty: 1 on 10/06/2015 by Alejandro Borjas MD at [facility] Right: Hip [employer] 06/03/2023 456.416S / / [id number] Blade Gold [employer] 85mm 11mm Jade Titanium Intramedullary Fix - [id number] - [id number] Implanted:Qty: 1 on 10/06/2015 by Alejandro Borjas MD at [facility] Right: Hip [employer] 456.302 / / Screw Nail-Ex Fullthrd 44mm 5mm Selftap Locking Stardrive - [id number] - [id number] Implanted:Qty: 1 on 10/06/2015 by Alejandro Borjas MD at [facility] Right: Hip [employer] 04.005.53 4 / / Knee Bsplt Triathlon Ti Sz 2 Stry-Howm [id number] - [id number] Implanted:Qty: 1 on 02/24/2023 by Alejandro Borjas MD at [facility] Left: Knee [employer] [id number] 11/08/2027 5536-B-20 0 / / [id number] Knee Insrt Tib Trthln Ps 2 Stry-Howm [id number] - [id number] Implanted:Qty: 1 on 02/24/2023 by Alejandro Borjas MD at [facility] Left: Knee [employer] [id number] 06/22/2027 5532-P-21 1 / / [id number] Description:Size #2, PS, THK NS: 11mm Knee Cmpnt Fem Ps N Kel Lt Sz2 Stry-Howm [id number] - [id number] Implanted:Qty: 1 on 02/24/2023 by Alejandro Borjas MD at [facility] Left: Knee [employer] [id number] 06/04/2027 5516-F-20 1 / / [id number] Description:Size #2, LEFT, P S Knee Ptla Smtr Tritanium 31x9 Stry-Howm [id number] - [id number] Implanted:Qty: 1 on 02/24/2023 by Alejandro Borjas MD at [facility] Left: Knee [employer] [id number] 01/16/2028 5556-L-31 9 [id number] Advance Directives For more information, please contact: [phone] Latest Code Status on File Code Status [...] following way: discussion with patient. Care Teams Principal Clerk Typist Relationship Specialty Start Date End Date Oseas Frey MD [address] [place] [address] PCP - General Internal Medicine 02/18/23 DR. MONK Pain [facility] 12/21/15
== END 2025-10-26 13:33 | disposition home or self-care (01) ==
LOC: HO.HMGAL 13:32
PROVIDERS: PCP Internal Medicine; Visit Provider Registered Nurse Emergency
DX: J30.89 Other allergic rhinitis (principal)
CPT/HCPCS: 95117; 95165